=== PATIENT | female | born 1990 | race American Indian/Alaskan Native ===

== ENCOUNTER 2017-12-31 11:50 | Outpatient (CLI) | payer OTHER | END 2017-12-31 12:45 | disposition home or self-care (01) | LOC: NST 11:50 | DX: Z34.82 Encounter for supervision of other normal pregnancy, second trimester (principal) ==

== ENCOUNTER 2018-02-03 17:10 | Outpatient (CLI) | payer OTHER | END 2018-02-03 18:46 | disposition home or self-care (01) | LOC: NST 17:10 | DX: Z34.83 Encounter for supervision of other normal pregnancy, third trimester (principal) ==

== ENCOUNTER 2018-03-14 21:52 | Outpatient (CLI) | payer OTHER | END 2018-03-14 21:55 | disposition home or self-care (01) | LOC: NST 21:52 | DX: Z34.83 Encounter for supervision of other normal pregnancy, third trimester (principal) ==

== ENCOUNTER 2018-04-09 05:23 | Inpatient (IN) | payer OTHER ==
[~2018-04-09] VITALS: Ht 167.6 cm; Wt 77.1 kg
[2018-04-09] MEDS ORDERED: PRENATAL TABLE1 EAC3 PO (13:42)
== END 2018-04-11 11:43 | disposition home or self-care (01) | DRG 775 ==
LOC: LDR 05:23 → SURG-SUITE 14:31 → OB/GYN 04-25 13:45
PROC: 10E0XZZ Delivery of Products of Conception, External Approach (ICD-10-PCS; principal; 2018-04-09)
PROC: 10907ZC Drainage of Amniotic Fluid, Therapeutic from Products of Conception, Via Natural or Artificial Opening (ICD-10-PCS; 2018-04-09)
PROC: 3E033VJ Introduction of Other Hormone into Peripheral Vein, Percutaneous Approach (ICD-10-PCS; 2018-04-09)
PROC: 4A1HXCZ Monitoring of Products of Conception, Cardiac Rate, External Approach (ICD-10-PCS; 2018-04-09)
DX: O80 Encounter for full-term uncomplicated delivery (principal); Z3A.37 37 weeks gestation of pregnancy; Z37.0 Single live birth

== ENCOUNTER 2019-07-14 15:44 | Inpatient (IN) | payer OTHER ==
[~2019-07-14] VITALS: Ht 167.6 cm; Wt 85.7 kg
[~2019-07-14 15:44] MED LIST: PRENATAL TABLE1 EAC3 PO
== END 2019-08-03 10:44 | disposition home or self-care (01) | DRG 807 ==
LOC: EDSTATUS 07-19 15:00 → ADM 07-19 15:00 → LDR 08-01 10:08 → OB/GYN 08-01 10:08 → LDR 08-01 10:12 → OB/GYN 08-01 15:49
PROVIDERS: ADMIT Obstetrics & Gynecology
PROC: 10E0XZZ Delivery of Products of Conception, External Approach (ICD-10-PCS; principal; 2019-08-01)
PROC: 4A1HXCZ Monitoring of Products of Conception, Cardiac Rate, External Approach (ICD-10-PCS; 2019-08-01)
DX: O80 Encounter for full-term uncomplicated delivery (principal); Z37.0 Single live birth; Z3A.39 39 weeks gestation of pregnancy

== ENCOUNTER 2019-07-21 14:48 | Outpatient (CLI) | payer OTHER | END 2019-07-21 15:22 | disposition home or self-care (01) | LOC: NST 14:48 | DX: Z34.83 Encounter for supervision of other normal pregnancy, third trimester (principal) ==